=== PATIENT | female | born 1945 | race Caucasian/White ===

== ENCOUNTER 2019-06-09 08:34 | Inpatient (IN) | payer MEDICARE ==
[2019-06-09] MEDS ORDERED: SODIUM CHLORIDE 0.9% 1,000 ML IV ONE (08:44)
--- NOTE | 2019-06-09 08:51 | ED ---
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 Also during the night she apparently was having some trouble. He did not sleep in the same room he states. She did have a recent urinary tract infection about 2 weeks ago she was treated for this. No other recent falls no fevers chills nausea vomiting sweats or other symptoms reported. He states that her mentation is not her normal mentation. No deficits. She was brought in by EMS stroke scale was negative. MD Complaint: fall - Related Data Home Medications Medication Instructions Recorded Confirmed Hydrochlorothiazide 50 mg PO DAILY 06/09/19 06/09/19 Omeprazole [PriLOSEC] 40 mg PO DAILY 06/09/19 06/09/19 Potassium Chloride [Klor-Con 10] 10 meq PO DAILY 06/09/19 06/09/19 Propranolol HCl [Inderal LA] 120 mg PO DAILY 06/09/19 06/09/19 Allergies Allergy/AdvReac Type Severity Reaction Status Date / Time No Known Allergies Allergy Verified 06/09/19 09:11 Review of Systems ROS Statement: Those systems with pertinent positive or pertinent negative responses have been documented in the HPI. ROS Other: All systems not noted in ROS Statement are negative. General Exam - General Exam Comments Initial Comments: This is a well-developed obese female who is awake and alert but confused she did have a cervical collar on for precautionary measures. Limitations: altered mental status General appearance: alert, in no apparent distress Head exam: Present: atraumatic, normocephalic, normal inspection Eye exam: Present: normal appearance, PERRL, EOMI. Absent: scleral icterus, conjunctival injection, periorbital swelling ENT exam: Present: normal exam, mucous membranes moist Neck exam: Present: normal inspection, full ROM, other (I did clear the patient's C-spine clinically.). Absent: tenderness, meningismus, lymphadenopathy Respiratory exam: Present: normal lung sounds bilaterally. Absent: respiratory distress, wheezes, rales, rhonchi, stridor Cardiovascular Exam: Present: regular rate, normal rhythm, normal heart sounds. Absent: systolic murmur, diastolic murmur, rubs, gallop, clicks GI/Abdominal exam: Present: soft, normal bowel sounds. Absent: distended, tenderness, guarding, rebound, rigid Extremities exam: Present: normal inspection, full ROM, normal capillary refill. Absent: tenderness, pedal edema, joint swelling, calf tenderness Back exam: Present: normal inspection Neurological exam: Present: alert, altered, CN II-XII intact. Absent: motor sensory deficit Psychiatric exam: Present: normal affect, normal mood Skin exam: Present: warm, dry, intact, normal color. Absent: rash Course Vital Signs 06/09/19 06/09/19 08:37 10:36 Temperature 102.5 F H Pulse Rate 83 81 Respiratory 18 18 Rate Blood Pressure 132/78 128/75 O2 Sat by Pulse 96 95 Oximetry - Reevaluation(s) Reevaluation #1: 06/09/19 10:55 Ventilation the patient after return from CAT scan reveals no change. Reevaluation #2: 06/09/19 10:55 I did review the imaging and reports no acute findings. Medical Decision Making - Medical Decision Making I did discuss findings with the patient and her as well as with Dr. Roque. Patient will be admitted for IV fluids and further evaluation. The altered mental status likely secondary to the infectious process. The patient is maintaining her blood pressure and heart rate - Lab Data Result diagrams: 06/09/19 08:38 06/09/19 08:38 Lab Results 06/09/19 06/09/19 06/09/19 Range/Units 08:38 08:38 08:38 WBC 14.1 H (3.8-10.6) k/uL RBC 4.29 (3.80-5.40) m/uL Hgb 11.9 (11.4-16.0) gm/dL Hct 36.4 (34.0-46.0) % MCV 84.8 (80.0-100.0) fL MCH 27.8 (25.0-35.0) pg MCHC 32.8 (31.0-37.0) g/dL RDW 15.7 H (11.5-15.5) % Plt Count 412 (150-450) k/uL Neutrophils % 79 % Lymphocytes % 11 % Monocytes % 7 % Eosinophils % 1 % Basophils % 0 % Neutrophils # 11.1 H (1.3-7.7) k/uL Lymphocytes # 1.5 (1.0-4.8) k/uL Monocytes # 1.0 (0-1.0) k/uL Eosinophils # 0.1 (0-0.7) k/uL Basophils # 0.0 (0-0.2) k/uL PT 9.8 (9.0-12.0) sec INR 0.9 (<1.2) APTT 25.0 (22.0-30.0) sec Sodium 136 L (137-145) mmol/L Potassium 4.0 (3.5-5.1) mmol/L Chloride 99 (98-107) mmol/L Carbon Dioxide 27 (22-30) mmol/L Anion Gap 10 mmol/L BUN 26 H (7-17) mg/dL Creatinine 1.15 H (0.52-1.04) mg/dL Est GFR (CKD-EPI)AfAm 55 (>60 ml/min/1.73 sqM) Est GFR (CKD-EPI)NonAf 47 (>60 ml/min/1.73 sqM) Glucose 130 H (74-99) mg/dL Calcium 8.8 (8.4-10.2) mg/dL Total Bilirubin 0.7 (0.2-1.3) mg/dL AST 27 (14-36) U/L ALT 19 (9-52) U/L Alkaline Phosphatase 105 (38-126) U/L Ammonia (<30) umol/L Creatine Kinase 24 L (30-135) U/L Troponin I (0.000-0.034) ng/mL Total Protein 6.7 (6.3-8.2) g/dL Albumin 3.7 (3.5-5.0) g/dL Urine Color Urine Appearance (Clear) Urine pH (5.0-8.0) Ur Specific [place] (1.001-1.035) Urine Protein (Negative) Urine Glucose (UA) (Negative) Urine Ketones (Negative) Urine Blood (Negative) Urine Nitrite (Negative) Urine Bilirubin (Negative) Urine Urobilinogen (<2.0) mg/dL Ur Leukocyte Esterase (Negative) Urine RBC (0-5) /hpf Urine WBC (0-5) /hpf Urine WBC Clumps (None) /hpf Urine Bacteria (None) /hpf Urine Opiates Screen (NotDetected) Ur Oxycodone Screen (NotDetected) Urine Methadone Screen (NotDetected) Ur Propoxyphene Screen (NotDetected) Ur Barbiturates Screen (NotDetected) U Tricyclic Antidepress (NotDetected) Ur Phencyclidine Scrn (NotDetected) Ur Amphetamines Screen (NotDetected) U Methamphetamines Scrn (NotDetected) U Benzodiazepines Scrn (NotDetected) Urine Cocaine Screen (NotDetected) U Marijuana (THC) Screen (NotDetected) 06/09/19 06/09/19 06/09/19 Range/Units 08:38 08:38 09:02 WBC (3.8-10.6) k/uL RBC (3.80-5.40) m/uL Hgb (11.4-16.0) gm/dL Hct (34.0-46.0) % MCV (80.0-100.0) fL MCH (25.0-35.0) pg MCHC (31.0-37.0) g/dL RDW (11.5-15.5) % Plt Count (150-450) k/uL Neutrophils % % Lymphocytes % % Monocytes % % Eosinophils % % Basophils % % Neutrophils # (1.3-7.7) k/uL Lymphocytes # (1.0-4.8) k/uL Monocytes # (0-1.0) k/uL Eosinophils # (0-0.7) k/uL Basophils # (0-0.2) k/uL PT (9.0-12.0) sec INR (<1.2) APTT (22.0-30.0) sec Sodium (137-145) mmol/L Potassium (3.5-5.1) mmol/L Chloride (98-107) mmol/L Carbon Dioxide (22-30) mmol/L Anion Gap mmol/L BUN (7-17) mg/dL Creatinine (0.52-1.04) mg/dL Est GFR (CKD-EPI)AfAm (>60 ml/min/1.73 sqM) Est GFR (CKD-EPI)NonAf (>60 ml/min/1.73 sqM) Glucose (74-99) mg/dL Calcium (8.4-10.2) mg/dL Total Bilirubin (0.2-1.3) mg/dL AST (14-36) U/L ALT (9-52) U/L Alkaline Phosphatase (38-126) U/L Ammonia <9 (<30) umol/L Creatine Kinase (30-135) U/L Troponin I <0.012 (0.000-0.034) ng/mL Total Protein (6.3-8.2) g/dL Albumin (3.5-5.0) g/dL Urine Color Yellow Urine Appearance Turbid H (Clear) Urine pH 6.0 (5.0-8.0) Ur Specific [place] 1.016 (1.001-1.035) Urine Protein 1+ H (Negative) Urine Glucose (UA) Negative (Negative) Urine Ketones Negative (Negative) Urine Blood Moderate H (Negative) Urine Nitrite Positive H (Negative) Urine Bilirubin Negative (Negative) Urine Urobilinogen <2.0 (<2.0) mg/dL Ur Leukocyte Esterase Large H (Negative) Urine RBC 22 H (0-5) /hpf Urine WBC >182 H (0-5) /hpf Urine WBC Clumps Many H (None) /hpf Urine Bacteria Many H (None) /hpf Urine Opiates Screen Not Detected (NotDetected) Ur Oxycodone Screen Not Detected (NotDetected) Urine Methadone Screen Not Detected (NotDetected) Ur Propoxyphene Screen Not Detected (NotDetected) Ur Barbiturates Screen Not Detected (NotDetected) U Tricyclic Antidepress Not Detected (NotDetected) Ur Phencyclidine Scrn Not Detected (NotDetected) Ur Amphetamines Screen Not Detected (NotDetected) U Methamphetamines Scrn Not Detected (NotDetected) U Benzodiazepines Scrn Detected H (NotDetected) Urine Cocaine Screen Not Detected (NotDetected) U Marijuana (THC) Screen Not Detected (NotDetected) - EKG Data -: EKG Interpreted by Dc EKG shows normal: sinus rhythm (Neuro sinus rhythm 80 SD interval 156 QRS duration 74 QT since QTC 360/424 nonspecific inferior configuration) Disposition Clinical Impression: Urinary tract infection, Delirium due to general medical condition, Febrile illness, acute, Dehydration, Renal insufficiency syndrome Disposition: ADMITTED IP TO THIS HOSP Condition: Fair Referrals: Josue Love MD [Primary Care Provider] - 1-2 days
[2019-06-09 09:07] LABS: Basophils % (A) 0 %; Eosinophils # (A) 0.1 k/uL (0-0.7); Eosinophils % (A) 1 %; HCT 36.4 % (34.0-46.0); HGB 11.9 gm/dL (11.4-16.0); Lymphocytes # (A) 1.5 k/uL (1.0-4.8); Lymphocytes % (A) 11 %; MCH 27.8 pg (25.0-35.0); MCHC 32.8 g/dL (31.0-37.0); MCV 84.8 fL (80.0-100.0); Mean Platelet Volume 6.8; Monocytes % (A) 7 %; Neutrophils # (A) 11.1 k/uL (1.3-7.7); Neutrophils % (A) 79 %; Platelet Count 412 k/uL (150-450); RBC 4.29 m/uL (3.80-5.40); RDW 15.7 % (11.5-15.5); WBC 14.1 k/uL (3.8-10.6)
[2019-06-09 09:19] LABS: INR 0.9 (<1.2); Prothrombin Time 9.8 sec (9.0-12.0)
[2019-06-09 09:21] LABS: Albumin 3.7 g/dL (3.5-5.0); Calcium 8.8 mg/dL (8.4-10.2); Total Bilirubin 0.7 mg/dL (0.2-1.3); Total Protein 6.7 g/dL (6.3-8.2)
[2019-06-09 09:46] LABS: Appearance,Urine Turbid (Clear); Bacteria,Urine Many /hpf; Bilirubin,Urine Negative (Negative); Blood,Urine Moderate (Negative); Color,Urine Yellow; Glucose,Urine (UA) Negative (Negative); Ketones,Urine Negative (Negative); Leukocyte Esterase,Urine Large (Negative); Nitrite,Urine Positive (Negative); Protein,Urine 1+ (Negative); RBC,Urine 22 /hpf (0-5); Specific Gravity,Urine 1.016 (1.001-1.035); Urobilinogen,Urine <2.0 mg/dL (<2.0)
--- NOTE | 2019-06-09 09:49 | CT ---
EXAMINATION TYPE: CT brain deric arora DATE OF EXAM: 06/09/2019 COMPARISON: NONE HISTORY: Fall injury with headache and neck pain CT DLP: 1457.2 mGycm. Automated Exposure Control for Dose Reduction was Utilized. TECHNIQUE: CT scan of the head and cervical spine are performed without contrast. FINDINGS: There is no acute intracranial hemorrhage or midline shift identified. Ventricle and sulc al prominence is seen. Low-attenuation in the deep and periventricular white matter is present. The globes are intact and the visualized sinuses are clear. The calvarium is intact. Cervical spine is visualized in its entirety from C1 through upper thoracic levels and demonstrates s traightened alignment without evidence of acute fracture or dislocation. Prevertebral soft tissue ap pears within normal limits. The C1-C2 articulation is within normal limits on the coronal images. V ertebral body heights are maintained. Moderate disc space narrowing C5-C6 and C6-C7 levels is seen. S ga canal is grossly preserved. Review of axial images shows multilevel uncovertebral facet degener ative changes bilaterally. Thyroid gland is within normal limits. Lung apices show emphysematous moore ge and parenchymal scarring. IMPRESSION: 1. There is no acute fracture or dislocation evident in the cervical spine. 2. No acute intracranial hemorrhage or midline shift is seen.
--- NOTE | 2019-06-09 09:50 | XR ---
EXAMINATION TYPE: XR chest 2V DATE OF EXAM: 06/09/2019 COMPARISON: NONE HISTORY: Fall injury this morning with altered mental status and weakness TECHNIQUE: Frontal and lateral views of the chest are obtained. FINDINGS: There is elevated and eventrated anterior aspect right hemidiaphragm. There is no focal air space opacity, pleural effusion, or pneumothorax seen. The cardiac silhouette size is enlarged. Ove rlying EKG leads are seen. Atherosclerotic change aortic knob is present The osseous structures are demineralized. Cholecystectomy clips are noted. IMPRESSION: Cardiomegaly without acute pulmonary process.
[2019-06-09 09:53] LABS: Amphetamine Screen,Urine Not Detected (NotDetected); Barbiturate Screen,Urine Not Detected (NotDetected); Benzodiazepines Screen,Urine Detected (NotDetected); Cocaine Screen,Urine Not Detected (NotDetected); Methadone Screen, Urine Not Detected (NotDetected); Opiate Screen,Urine Not Detected (NotDetected); Oxycodone Screen, Urine Not Detected (NotDetected); Phencyclidine Screen,Urine Not Detected (NotDetected); Tricyclic Antidepressant,Urine Not Detected (NotDetected); Urn Cannabinoid Scrn Not Detected (NotDetected)
[2019-06-09] MEDS ORDERED: cefTRIAXone IN SWFI 1,000 MG/10 ML SYRINGE IVP STA ×2 (10:14→11:05)
[2019-06-09] MEDS ORDERED: ACETAMINOPHEN TAB 325 MG TAB PO STA (10:15)
[2019-06-09] MEDS ORDERED: ONDANSETRON 4 MG/2 ML VIAL IVP PRN (10:59)
[2019-06-09] MEDS ORDERED: NALOXONE 0.4 MG/ML 1 ML VIAL IV PRN (10:59)
--- NOTE | 2019-06-09 11:21 | ED ---
Medical Decision Making - Lab Data Result diagrams: 06/09/19 08:38 06/09/19 08:38 Lab Results 06/09/19 06/09/19 06/09/19 Range/Units 08:38 08:38 08:38 WBC 14.1 H (3.8-10.6) k/uL RBC 4.29 (3.80-5.40) m/uL Hgb 11.9 (11.4-16.0) gm/dL Hct 36.4 (34.0-46.0) % MCV 84.8 (80.0-100.0) fL MCH 27.8 (25.0-35.0) pg MCHC 32.8 (31.0-37.0) g/dL RDW 15.7 H (11.5-15.5) % Plt Count 412 (150-450) k/uL Neutrophils % 79 % Lymphocytes % 11 % Monocytes % 7 % Eosinophils % 1 % Basophils % 0 % Neutrophils # 11.1 H (1.3-7.7) k/uL Lymphocytes # 1.5 (1.0-4.8) k/uL Monocytes # 1.0 (0-1.0) k/uL Eosinophils # 0.1 (0-0.7) k/uL Basophils # 0.0 (0-0.2) k/uL PT 9.8 (9.0-12.0) sec INR 0.9 (<1.2) APTT 25.0 (22.0-30.0) sec Sodium 136 L (137-145) mmol/L Potassium 4.0 (3.5-5.1) mmol/L Chloride 99 (98-107) mmol/L Carbon Dioxide 27 (22-30) mmol/L Anion Gap 10 mmol/L BUN 26 H (7-17) mg/dL Creatinine 1.15 H (0.52-1.04) mg/dL Est GFR (CKD-EPI)AfAm 55 (>60 ml/min/1.73 sqM) Est GFR (CKD-EPI)NonAf 47 (>60 ml/min/1.73 sqM) Glucose 130 H (74-99) mg/dL Calcium 8.8 (8.4-10.2) mg/dL Total Bilirubin 0.7 (0.2-1.3) mg/dL AST 27 (14-36) U/L ALT 19 (9-52) U/L Alkaline Phosphatase 105 (38-126) U/L Ammonia (<30) umol/L Creatine Kinase 24 L (30-135) U/L Troponin I (0.000-0.034) ng/mL Total Protein 6.7 (6.3-8.2) g/dL Albumin 3.7 (3.5-5.0) g/dL Urine Color Urine Appearance (Clear) Urine pH (5.0-8.0) Ur Specific [place] (1.001-1.035) Urine Protein (Negative) Urine Glucose (UA) (Negative) Urine Ketones (Negative) Urine Blood (Negative) Urine Nitrite (Negative) Urine Bilirubin (Negative) Urine Urobilinogen (<2.0) mg/dL Ur Leukocyte Esterase (Negative) Urine RBC (0-5) /hpf Urine WBC (0-5) /hpf Urine WBC Clumps (None) /hpf Urine Bacteria (None) /hpf Urine Opiates Screen (NotDetected) Ur Oxycodone Screen (NotDetected) Urine Methadone Screen (NotDetected) Ur Propoxyphene Screen (NotDetected) Ur Barbiturates Screen (NotDetected) U Tricyclic Antidepress (NotDetected) Ur Phencyclidine Scrn (NotDetected) Ur Amphetamines Screen (NotDetected) U Methamphetamines Scrn (NotDetected) U Benzodiazepines Scrn (NotDetected) Urine Cocaine Screen (NotDetected) U Marijuana (THC) Screen (NotDetected) 06/09/19 06/09/19 06/09/19 Range/Units 08:38 08:38 09:02 WBC (3.8-10.6) k/uL RBC (3.80-5.40) m/uL Hgb (11.4-16.0) gm/dL Hct (34.0-46.0) % MCV (80.0-100.0) fL MCH (25.0-35.0) pg MCHC (31.0-37.0) g/dL RDW (11.5-15.5) % Plt Count (150-450) k/uL Neutrophils % % Lymphocytes % % Monocytes % % Eosinophils % % Basophils % % Neutrophils # (1.3-7.7) k/uL Lymphocytes # (1.0-4.8) k/uL Monocytes # (0-1.0) k/uL Eosinophils # (0-0.7) k/uL Basophils # (0-0.2) k/uL PT (9.0-12.0) sec INR (<1.2) APTT (22.0-30.0) sec Sodium (137-145) mmol/L Potassium (3.5-5.1) mmol/L Chloride (98-107) mmol/L Carbon Dioxide (22-30) mmol/L Anion Gap mmol/L BUN (7-17) mg/dL Creatinine (0.52-1.04) mg/dL Est GFR (CKD-EPI)AfAm (>60 ml/min/1.73 sqM) Est GFR (CKD-EPI)NonAf (>60 ml/min/1.73 sqM) Glucose (74-99) mg/dL Calcium (8.4-10.2) mg/dL Total Bilirubin (0.2-1.3) mg/dL AST (14-36) U/L ALT (9-52) U/L Alkaline Phosphatase (38-126) U/L Ammonia <9 (<30) umol/L Creatine Kinase (30-135) U/L Troponin I <0.012 (0.000-0.034) ng/mL Total Protein (6.3-8.2) g/dL Albumin (3.5-5.0) g/dL Urine Color Yellow Urine Appearance Turbid H (Clear) Urine pH 6.0 (5.0-8.0) Ur Specific [place] 1.016 (1.001-1.035) Urine Protein 1+ H (Negative) Urine Glucose (UA) Negative (Negative) Urine Ketones Negative (Negative) Urine Blood Moderate H (Negative) Urine Nitrite Positive H (Negative) Urine Bilirubin Negative (Negative) Urine Urobilinogen <2.0 (<2.0) mg/dL Ur Leukocyte Esterase Large H (Negative) Urine RBC 22 H (0-5) /hpf Urine WBC >182 H (0-5) /hpf Urine WBC Clumps Many H (None) /hpf Urine Bacteria Many H (None) /hpf Urine Opiates Screen Not Detected (NotDetected) Ur Oxycodone Screen Not Detected (NotDetected) Urine Methadone Screen Not Detected (NotDetected) Ur Propoxyphene Screen Not Detected (NotDetected) Ur Barbiturates Screen Not Detected (NotDetected) U Tricyclic Antidepress Not Detected (NotDetected) Ur Phencyclidine Scrn Not Detected (NotDetected) Ur Amphetamines Screen Not Detected (NotDetected) U Methamphetamines Scrn Not Detected (NotDetected) U Benzodiazepines Scrn Detected H (NotDetected) Urine Cocaine Screen Not Detected (NotDetected) U Marijuana (THC) Screen Not Detected (NotDetected) Disposition Clinical Impression: Urinary tract infection, Delirium due to general medical condition, Febrile illness, acute, Dehydration, Renal insufficiency syndrome, Pyelonephritis Disposition: ADMITTED IP TO THIS [facility] Condition: Fair Referrals: Josue Love MD [Primary Care Provider] - 1-2 days
[2019-06-09 13:07] VITALS: BMI 30.4
--- NOTE | 2019-06-09 14:06 | P.HPIM ---
History of Present Illness 74-year-old pleasant female came in after a fall patient was found the in between her bed and wall which, patient has been having fevers and complaining of flank pain and back pain on the entire right side along with dysuria patient has high-grade fevers found to have significantly abnormal urine. Patient was treated for urinary tract infection couple weeks ago as an outpatient. Patient had a CAT scan of the head and neck because of her fall which did not show any significant abnormality at the fracture. Patient was started on Rocephin we get the medical records from PCPs office looking for the urine culture and sensitivity results. Patient has mild acute renal failure with creatinine of 1.15 I do not have her baseline at this time. Review of Systems REVIEW OF SYSTEMS: CONSTITUTIONAL: No fever, no malaise, no fatigue. HEENT: No recent visual problems or hearing problems. Denied any sore throat. CARDIOVASCULAR: No chest pain, orthopnea, PND, no palpitations, no syncope. PULMONARY: No shortness of breath, no cough, no hemoptysis. GASTROINTESTINAL: No diarrhea, no nausea, no vomiting, no abdominal pain. NEUROLOGICAL: No headaches, no weakness, no numbness. HEMATOLOGICAL: Denies any bleeding or petechiae. GENITOURINARY: As mentioned in HPI MUSCULOSKELETAL/RHEUMATOLOGICAL: Denies any joint pain, swelling, or any muscle pain. ENDOCRINE: Denies any polyuria or polydipsia. The rest of the 14-point review of systems is negative. 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 History of Any Multi-Drug Resistant Organisms: None Reported Past Surgical History: Appendectomy, Hysterectomy, Tonsillectomy Additional Past Surgical History / Comment(s): brain surgery, colonoscopy- normal. Past Anesthesia/Blood Transfusion Reactions: No Reported Reaction Additional Past Anesthesia/Blood Transfusion Reaction / Comment(s): Pt received blood with brain surgery. Smoking Status: Former smoker - Past Family History Father Family Medical History: Myocardial Infarction ([place]) Additional Family Medical History / Comment(s): Father of a massive [place] at the age of 86yrs. Mother Family Medical History: Dementia Additional Family Medical History / Comment(s): Mother of alzheimer's at the age of 78yrs. Medications and Allergies Home Medications Medication Instructions Recorded Confirmed Type ALPRAZolam [Xanax] 0.5 mg PO TID PRN 06/09/19 06/09/19 History Hydrochlorothiazide 50 mg PO DAILY 06/09/19 06/09/19 History Omeprazole [PriLOSEC] 40 mg PO DAILY 06/09/19 06/09/19 History Potassium Chloride [Klor-Con 10] 10 meq PO DAILY 06/09/19 06/09/19 History Propranolol HCl [Inderal LA] 120 mg PO DAILY 06/09/19 06/09/19 History Simvastatin 10 mg PO HS 06/09/19 06/09/19 History Allergies Allergy/AdvReac Type Severity Reaction Status Date / Time No Known Allergies Allergy Verified 06/09/19 09:11 Physical Exam Vitals: Vital Signs Temp Pulse Resp BP Pulse Ox 06/09/19 11:53 99.7 F H 77 18 103/64 95 06/09/19 10:36 81 18 128/75 95 06/09/19 08:37 102.5 F H 83 18 132/78 96 Intake and Output 06/08/19 06/09/19 06/09/19 22:59 06:59 14:59 Output Total 20 Balance -20 Output: Urine 20 Straight 20 Other: Weight 85.729 kg PHYSICAL EXAMINATION: GENERAL: The patient is alert and oriented x3, not in any acute distress. Well developed, well nourished. HEENT: Pupils are round and equally reacting to light. EOMI. No scleral icterus. No conjunctival pallor. Normocephalic, atraumatic. No pharyngeal erythema. No thyromegaly. CARDIOVASCULAR: S1 and S2 present. No murmurs, rubs, or gallops. PULMONARY: Chest is clear to auscultation, no wheezing or crackles. ABDOMEN: She does have a significant right costo vertebral angle tenderness uzma ng with the paraspinal tenderness. MUSCULOSKELETAL: No joint swelling or deformity. EXTREMITIES: No cyanosis, clubbing, or pedal edema. NEUROLOGICAL: Gross neurological examination did not reveal any focal deficits. SKIN: No rashes. Results CBC & Chem 7: 06/09/19 08:38 06/09/19 08:38 Labs: Abnormal Lab Results - Last 24 Hours (Table) 07/12/19 07/12/19 07/12/19 Range/Units 08:38 08:38 09:02 WBC 14.1 H (3.8-10.6) k/uL RDW 15.7 H (11.5-15.5) % Neutrophils # 11.1 H (1.3-7.7) k/uL Sodium 136 L (137-145) mmol/L BUN 26 H (7-17) mg/dL Creatinine 1.15 H (0.52-1.04) mg/dL Glucose 130 H (74-99) mg/dL Creatine Kinase 24 L (30-135) U/L Urine Appearance Turbid H (Clear) Urine Protein 1+ H (Negative) Urine Blood Moderate H (Negative) Urine Nitrite Positive H (Negative) Ur Leukocyte Esterase Large H (Negative) Urine RBC 22 H (0-5) /hpf Urine WBC >182 H (0-5) /hpf Urine WBC Clumps Many H (None) /hpf Urine Bacteria Many H (None) /hpf U Benzodiazepines Scrn Detected H (NotDetected) Thrombosis Risk Factor Assmnt - Choose All That Apply Any of the Below Risk Factors Present?: Yes Each Factor Represents 1 point: Obesity (BMI >25) Other Risk Factors: Yes Each Risk Factor Represents 2 Points: Age 61-74 years Other congenital or acquired thrombophilia - If yes, enter type in comment: No Thrombosis Risk Factor Assessment Total Risk Factor Score: 3 Thrombosis Risk Factor Assessment Level: Moderate Risk Assessment and Plan Plan: -Sepsis secondary to urinary tract infection, patient appears to have pyelonephritis: Patient will be can you done IV fluids, Rocephin awaiting urine cultures will obtain medical records from PCPs office, infectious disease was consulted. -Gastroesophageal reflux disease -Hyperlipidemia -Depression -Hypertension for above-mentioned chronic medical problems patient will be resumed on appropriate home medications GI prophylaxis with Pepcid secondary to sepsis, due to prophylaxis with subcutan eous heparin
[2019-06-09] MEDS: SODIUM CHLORIDE 0.9% 1,000 ML IV SCH ×2 (17:55→23:01)
[2019-06-09] MEDS: HEPARIN SODIUM,PORCINE 5,000 UNIT/ML 1 ML VIAL SQ SCH ×2 (17:55→21:10)
--- NOTE | 2019-06-09 20:34 | P.CONS ---
History of Present Illness - Reason for Consult Consult date: 06/09/19 - Chief Complaint Fever - History of Present Illness 74-year-old woman presents to Hospital feeling poorly in home for the last few days. She consequently is brought to Hospital by family with alteration of her mental status fever and weakness. She apparently has been followed in the outpatient setting for a urinary tract infection. They thought maybe urine culture was on the primary care physician office which the nursing staff have attempted to obtain. Initially that she took [id number] Azo products for almost 2 weeks. she now presents with evidence of sepsis and the consult was requested. She does not believe that she has had outpatient antibiotic therapy. Review of Systems Patient feels weak and tired HEENT:Denies headache or acute visual change. Denies sinus or mouth discomforts. Denies neck stiffness or pain. Denies significant oral cavity pain. Denies difficulty on swallowing. Lungs: Denies significant shortness of breath, cough, sputum production, or hemoptysis. Cardiovascular: Denies significant shortness of breath, chest pain, chest wall pain, orthopnea, dyspnea on exertion, syncope Gastrointestinal:Denies nausea, vomiting, diarrhea, constipation, hematemesis, melena, hematochezia. No no significant change of bowel habit noticed. Musculoskeletal: denies significant myalgias or arthralgias. No new joint swelling. Denies new back pain. Skin: Denies new rash or lesions. No new ulcers or wounds are related.. Neuro: Denies headache or visual change. Denies any new onset weakness or difficulty with ambulation. Denies falls or seizures. Psychiatric:Denies anxiety or depression. Endocrine: Complains of fatigue weight is been stable Patient does complain of severe dysuria, urinary frequency but does not have significant flank pain at this time. 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 History of Any Multi-Drug Resistant Organisms: None Reported Past Surgical History: Appendectomy, Hysterectomy, Tonsillectomy Additional Past Surgical History / Comment(s): brain surgery, colonoscopy- normal. Past Anesthesia/Blood Transfusion Reactions: No Reported Reaction Additional Past Anesthesia/Blood Transfusion Reaction / Comm: Pt received blood with brain surgery. Additional Psychological History / Comment(s): Patient with that she is . Cared for by the and family home. No travel. No pets Smoking Status: Former smoker - Past Family History Father Family Medical History: Myocardial Infarction (CA) Additional Family Medical History / Comment(s): Father of a massive CA at the age of 86yrs. Mother Family Medical History: Dementia Additional Family Medical History / Comment(s): Mother of alzheimer's at the age of 78yrs. Medications and Allergies Home Medications and Allergies Comment(s): Current Medications Acetaminophen (Tylenol Tab) 650 mg PO Q6HR PRN PRN Reason: Mild Pain or Fever > 100.5 Famotidine (Pepcid) 20 mg PO BID [facility] Heparin Sodium (Porcine) (Heparin) 5,000 unit SQ Q8HR [facility] Last Admin: 06/09/19 17:55 Dose: 5,000 unit Documented by: Sodium Chloride (Saline 0.9%) 1,000 mls @ 100 mls/hr IV .Q10H [facility] Last Admin: 06/09/19 17:55 Dose: 100 mls/hr Documented by: Ceftriaxone Sodium 2 gm/ (Sodium Chloride) 50 mls @ 100 mls/hr IVPB Q24HR [facility] Naloxone HCl (Narcan) 0.2 mg IV Q2M PRN PRN Reason: Opioid Reversal Ondansetron HCl (Zofran) 4 mg IVP Q8HR PRN PRN Reason: Nausea And Vomiting Pantoprazole Sodium (Protonix) 40 mg PO AC-BRKFST [facility] Potassium Chloride (K-Dur 10) 10 meq PO DAILY [facility] Propranolol HCl (Inderal La) 120 mg PO DAILY [facility] Home Medications Medication Instructions Recorded Confirmed Type ALPRAZolam [Xanax] 0.5 mg PO TID PRN 06/09/19 06/09/19 History Hydrochlorothiazide 50 mg PO DAILY 06/09/19 06/09/19 History Omeprazole [PriLOSEC] 40 mg PO DAILY 06/09/19 06/09/19 History Potassium Chloride [Klor-Con 10] 10 meq PO DAILY 06/09/19 06/09/19 History Propranolol HCl [Inderal LA] 120 mg PO DAILY 06/09/19 06/09/19 History Simvastatin 10 mg PO HS 06/09/19 06/09/19 History Allergies Allergy/AdvReac Type Severity Reaction Status Date / Time No Known Allergies Allergy Verified 06/09/19 09:11 Physical Exam Vitals: Vital Signs Temp Pulse Resp BP Pulse Ox 06/09/19 15:00 98.2 F 06/09/19 11:53 99.7 F H 77 18 103/64 95 06/09/19 10:36 81 18 128/75 95 06/09/19 08:37 102.5 F H 83 18 132/78 96 Intake and Output 06/09/19 06/09/19 06/09/19 06:59 14:59 22:59 Intake Total 200 Output Total 20 Balance 180 Intake: Intake, IV Titration 200 Amount Sodium Chloride 0.9% 1, 200 000 ml @ 100 mls/hr IV . Q10H [facility] Rx#:[id number] Output: Urine 20 Straight 20 Other: Voiding Method Diaper Weight 85.729 kg HEENT: Anicteric conjunctiva are pink and moist nasal mucosa grossly intact without significant lesions, there is no thrush. Neck: The neck is supple without significant lymphadenopathy or thyromegaly. Lungs: Good bilateral air entry without significant crackles or wheezing. There is no significant bronchial sounds. There is no egophony or dullness. Heart: Regular audible S1 and S2 soft S4 no murmur click or a PMI is nondisplaced Abdomen: Obese, Positive bowel sounds soft and nontender without palpable masses or organomegaly. There was no guarding or rebound. Extremities: The upper extremities have excellent pulses they are symmetric, no significant petechiae or telangiectasia. No splinter hemorrhages were noted. The lower extremities have bilateral lower extremity edema is 2+ and symmetric without open ulcerations being seen Neuro: The patient is arousable, she becomes conversational when she's been awake for a few minutes but easily falls back to sleep. She has not a good historian at this time. Results CBC & Chem 7: 06/09/19 08:38 06/09/19 08:38 Labs: Abnormal Lab Results - Last 24 Hours (Table) 06/09/19 06/09/19 06/09/19 Range/Units 08:38 08:38 09:02 WBC 14.1 H (3.8-10.6) k/uL RDW 15.7 H (11.5-15.5) % Neutrophils # 11.1 H (1.3-7.7) k/uL Sodium 136 L (137-145) mmol/L BUN 26 H (7-17) mg/dL Creatinine 1.15 H (0.52-1.04) mg/dL Glucose 130 H (74-99) mg/dL Creatine Kinase 24 L (30-135) U/L Urine Appearance Turbid H (Clear) Urine Protein 1+ H (Negative) Urine Blood Moderate H (Negative) Urine Nitrite Positive H (Negative) Ur Leukocyte Esterase Large H (Negative) Urine RBC 22 H (0-5) /hpf Urine WBC >182 H (0-5) /hpf Urine WBC Clumps Many H (None) /hpf Urine Bacteria Many H (None) /hpf U Benzodiazepines Scrn Detected H (NotDetected) Microbiology - Last 24 Hours (Table) 06/09/19 09:02 Urine Culture - Preliminary Urine,Catheterized Laboratory Results WBC 14.1 k/uL (3.8-10.6) H 06/09/19 08:38 RBC 4.29 m/uL (3.80-5.40) 06/09/19 08:38 Hgb 11.9 gm/dL (11.4-16.0) 06/09/19 08:38 Hct 36.4 % (34.0-46.0) 06/09/19 08:38 MCV 84.8 fL (80.0-100.0) 06/09/19 08:38 MCH 27.8 pg (25.0-35.0) 06/09/19 08:38 MCHC 32.8 g/dL (31.0-37.0) 06/09/19 08:38 RDW 15.7 % (11.5-15.5) H 06/09/19 08:38 Plt Count 412 k/uL (150-450) 06/09/19 08:38 Neutrophils % 79 % 06/09/19 08:38 Lymphocytes % 11 % 06/09/19 08:38 Monocytes % 7 % 06/09/19 08:38 Eosinophils % 1 % 06/09/19 08:38 Basophils % 0 % 06/09/19 08:38 Neutrophils # 11.1 k/uL (1.3-7.7) H 06/09/19 08:38 Lymphocytes # 1.5 k/uL (1.0-4.8) 06/09/19 08:38 Monocytes # 1.0 k/uL (0-1.0) 06/09/19 08:38 Eosinophils # 0.1 k/uL (0-0.7) 06/09/19 08:38 Basophils # 0.0 k/uL (0-0.2) 06/09/19 08:38 PT 9.8 sec (9.0-12.0) 06/09/19 08:38 INR 0.9 (<1.2) 06/09/19 08:38 APTT 25.0 sec (22.0-30.0) 06/09/19 08:38 Sodium 136 mmol/L (137-145) L 06/09/19 08:38 Potassium 4.0 mmol/L (3.5-5.1) 06/09/19 08:38 Chloride 99 mmol/L (98-107) 06/09/19 08:38 Carbon Dioxide 27 mmol/L (22-30) 06/09/19 08:38 Anion Gap 10 mmol/L 06/09/19 08:38 BUN 26 mg/dL (7-17) H 06/09/19 08:38 Creatinine 1.15 mg/dL (0.52-1.04) H 06/09/19 08:38 Est GFR (CKD-EPI)AfAm 55 (>60 ml/min/1.73 sqM) 06/09/19 08:38 Est GFR (CKD-EPI)NonAf 47 (>60 ml/min/1.73 sqM) 06/09/19 08:38 Glucose 130 mg/dL (74-99) H 06/09/19 08:38 Calcium 8.8 mg/dL (8.4-10.2) 06/09/19 08:38 Total Bilirubin 0.7 mg/dL (0.2-1.3) 06/09/19 08:38 AST 27 U/L (14-36) 06/09/19 08:38 ALT 19 U/L (9-52) 06/09/19 08:38 Alkaline Phosphatase 105 U/L (38-126) 06/09/19 08:38 Ammonia <9 umol/L (<30) 06/09/19 08:38 Creatine Kinase 24 U/L (30-135) L 06/09/19 08:38 Troponin I <0.012 ng/mL (0.000-0.034) 06/09/19 08:38 Total Protein 6.7 g/dL (6.3-8.2) 06/09/19 08:38 Albumin 3.7 g/dL (3.5-5.0) 07 08:38 Urine Color Yellow 06/09/19 09:02 Urine Appearance Turbid (Clear) H 06/09/19 09:02 Urine pH 6.0 (5.0-8.0) 06/09/19 09:02 Ur Specific [place] 1.016 (1.001-1.035) 06/09/19 09:02 Urine Protein 1+ (Negative) H 06/09/19 09:02 Urine Glucose (UA) Negative (Negative) 06/09/19 09:02 Urine Ketones Negative (Negative) 06/09/19 09:02 Urine Blood Moderate (Negative) H 06/09/19 09:02 Urine Nitrite Positive (Negative) H 06/09/19 09:02 Urine Bilirubin Negative (Negative) 06/09/19 09:02 Urine Urobilinogen <2.0 mg/dL (<2.0) 06/09/19 09:02 Ur Leukocyte Esterase Large (Negative) H 06/09/19 09:02 Urine RBC 22 /hpf (0-5) H 06/09/19 09:02 Urine WBC >182 /hpf (0-5) H 06/09/19 09:02 Urine WBC Clumps Many /hpf (None) H 06/09/19 09:02 Urine Bacteria Many /hpf (None) H 06/09/19 09:02 Urine Opiates Screen Not Detected (NotDetected) 06/09/19 09:02 Ur Oxycodone Screen Not Detected (NotDetected) 06/09/19 09:02 Urine Methadone Screen Not Detected (NotDetected) 06/09/19 09:02 Ur Propoxyphene Screen Not Detected (NotDetected) 06/09/19 09:02 Ur Barbiturates Screen Not Detected (NotDetected) 06/09/19 09:02 U Tricyclic Antidepress Not Detected (NotDetected) 06/09/19 09:02 Ur Phencyclidine Scrn Not Detected (NotDetected) 06/09/19 09:02 Ur Amphetamines Screen Not Detected (NotDetected) 06/09/19 09:02 U Methamphetamines Scrn Not Detected (NotDetected) 06/09/19 09:02 U Benzodiazepines Scrn Detected (NotDetected) H 06/09/19 09:02 Urine Cocaine Screen Not Detected (NotDetected) 06/09/19 09:02 U Marijuana (THC) Screen Not Detected (NotDetected) 06/09/19 09:02 Microbiology 06/09/19 09:02 Urine,Catheterized Urine Culture - Preliminary Assessment and Plan (1) Febrile illness, acute Current Visit: Yes Status: Acute Code(s): R50.9 - FEVER, UNSPECIFIED SNOMED Code(s): 820785277 (2) Urinary tract infection Narrative/Plan: 74-year-old woman who has a several week history of urinary tract infection who has been treated with outpatient treatments. Apparently she did try to be seen in the outpatient setting but there is no notation that she was placed on antibiotic therapy or had urinalysis or culture. At this time she appears to have sepsis from urinary system and antibiotic therapy has been initiated with Rocephin. Imaging of the system was requested. Hydration has been given in a. There has been improvement of her status. Her leukocytosis secondary to her sepsis and urinary infection. She appears to have septic encephalopathy that already is starting to improve. Current Visit: Yes Status: Acute Code(s): N39.0 - URINARY TRACT INFECTION, SITE NOT SPECIFIED SNOMED Code(s): 93111707 (3) Sepsis Current Visit: Yes Status: Acute Code(s): A41.9 - SEPSIS, UNSPECIFIED ORGANISM SNOMED Code(s): 13163852
[2019-06-09 21:10] VITALS: RESP 16
[2019-06-09] MEDS: FAMOTIDINE 20 MG TAB PO SCH (21:10)
[2019-06-10 07:33] LABS: HCT 34.6 % (34.0-46.0); HGB 11.2 gm/dL (11.4-16.0); MCH 27.6 pg (25.0-35.0); MCHC 32.3 g/dL (31.0-37.0); MCV 85.4 fL (80.0-100.0); Mean Platelet Volume 6.6; Platelet Count 355 k/uL (150-450); RBC 4.04 m/uL (3.80-5.40); RDW 15.9 % (11.5-15.5); WBC 12.1 k/uL (3.8-10.6)
[2019-06-10 08:07] LABS: Calcium 8.4 mg/dL (8.4-10.2); Potassium 3.3 mmol/L (3.5-5.1)
[2019-06-10] MEDS ORDERED: HYDROCHLOROTHIAZIDE 50 MG TAB PO SCH (09:00)
[2019-06-10] MEDS: POTASSIUM CHLORIDE ER 10 MEQ TAB.ER.PRT PO SCH (09:57)
[2019-06-10] MEDS: PANTOPRAZOLE 40 MG TABLET PO SCH (09:57)
[2019-06-10] MEDS: PROPRANOLOL LA 60 MG CAP.SA.24H PO SCH (09:57)
[2019-06-10] MEDS: FAMOTIDINE 20 MG TAB PO SCH ×2 (09:57→22:09)
[2019-06-10] MEDS: HEPARIN SODIUM,PORCINE 5,000 UNIT/ML 1 ML VIAL SQ SCH ×3 (09:57→22:09)
[2019-06-10] MEDS: ACETAMINOPHEN TAB 325 MG TAB PO PRN (11:50)
[2019-06-10] MEDS: SODIUM CHLORIDE 0.9% 1,000 ML IV SCH ×2 (11:51→23:41)
[2019-06-10] MEDS ORDERED: POTASSIUM CHLORIDE ER 20 MEQ TAB.ER PO STA (14:45)
--- NOTE | 2019-06-10 16:05 | P.PN ---
Subjective 74-year-old female was admitted for sepsis secondary to UTI and right-sided pyelonephritis patient is feeling better patient is afebrile patient's serum creatinine is 1.15 stable at that level. Patient will be continued on IV fluids and antibiotics urine cultures are showing gram-negative bacilli. There are no urine cultures available from outpatient. Constitutional: Denied any fatigue denied any fever. Cardio vascular: denied any chest pain, palpitations Gastrointestinal denied any nausea vomiting Pulmonary: Denied any shortness of breath cough Neurologic denied any new focal deficits All inpatient medications were reviewed and appropriate changes in these medications as dictated in the interval history and assessment and plan. Objective - Vital Signs Vital signs: Vital Signs Temp 98.4 F 06/10/19 11:57 Pulse 88 06/10/19 11:57 Resp 16 06/10/19 11:57 BP 124/84 06/10/19 11:57 Pulse Ox 96 06/10/19 11:57 Intake & Output 06/09/19 06/10/19 06/10/19 18:59 06:59 18:59 Intake Total 200 1680 850 Output Total 20 Balance 180 1680 850 Weight 85.729 kg Intake: Intake, IV Titration 200 1200 850 Amount Sodium Chloride 0.9% 1, 200 1200 800 000 ml @ 100 mls/hr IV . Q10H [facility] Rx#:[id number] cefTRIAXone 2 gm In 50 Sodium Chloride 0.9% 50 ml @ 100 mls/hr IVPB Q24HR [facility] Rx#:[id number] Oral 480 Output: Urine 20 Straight 20 Other: Voiding Method Diaper Diaper Bedside Commode Diaper # Voids 2 2 - Exam PHYSICAL EXAMINATION: GENERAL: The patient is alert and oriented x3, not in any acute distress. Well developed, well nourished. HEENT: Pupils are round and equally reacting to light. EOMI. No scleral icterus. No conjunctival pallor. Normocephalic, atraumatic. No pharyngeal erythema. No thyromegaly. CARDIOVASCULAR: S1 and S2 present. No murmurs, rubs, or gallops. PULMONARY: Chest is clear to auscultation, no wheezing or crackles. ABDOMEN: Soft, nontender, nondistended, normoactive bowel sounds. No palpable organomegaly. MUSCULOSKELETAL: No joint swelling or deformity. EXTREMITIES: No cyanosis, clubbing, or pedal edema. NEUROLOGICAL: Gross neurological examination did not reveal any focal deficits. SKIN: No rashes. - Labs CBC & Chem 7: 06/10/19 07:11 06/10/19 07:11 Labs: Abnormal Lab Results - Last 24 Hours (Table) 06/10/19 06/10/19 Range/Units 07:11 07:11 WBC 12.1 H (3.8-10.6) k/uL Hgb 11.2 L (11.4-16.0) gm/dL RDW 15.9 H (11.5-15.5) % Potassium 3.3 L (3.5-5.1) mmol/L BUN 30 H (7-17) mg/dL Creatinine 1.10 H (0.52-1.04) mg/dL Glucose 112 H (74-99) mg/dL Microbiology - Last 24 Hours (Table) 06/09/19 09:02 Urine Culture - Preliminary Urine,Catheterized Gram Neg Bacilli 06/09/19 09:02 Blood Culture - Preliminary Blood No Growth after 24 hours Assessment and Plan Plan: -Sepsis secondary to urinary tract infection, patient appears to have pyelonephritis: Continue with IV fluids IV Rocephin urine culture showing gram- negative bacilli. -Gastroesophageal reflux disease -Hyperlipidemia -Depression -Hypertension for above-mentioned chronic medical problems patient was resumed on appropriate home medications GI prophylaxis with Pepcid secondary to sepsis, due to prophylaxis with subcutaneous heparin
--- NOTE | 2019-06-10 21:16 | P.PN ---
Subjective Progress Note Date: 06/10/19 74-year-old woman presents to Hospital feeling poorly in home for the last few days. She consequently is brought to Hospital by family with alteration of her mental status fever and weakness. She apparently has been followed in the outpatient setting for a urinary tract infection. They thought maybe urine culture was on the primary care physician office which the nursing staff have attempted to obtain. Initially that she took [id number] Azo products for almost 2 weeks. she now presents with evidence of sepsis and the consult was requested. She does not believe that she has had outpatient antibiotic therapy.06/10/2019 the patient today is much more awake alert and interactive. She is able to complete sentences. The patient's is present today and is able to relate and confirm that her activity of yesterday was not her baseline. She does have difficulty but is normally awake alert and is able to feed and toilet herself, which she was not able to do yesterday. He relates that she became so weak she ended up on the floor and could not get her up and EMS brought her to hospital. is quite pleased that she is so improved in a days' time. Objective - Vital Signs Vital signs: Vital Signs Temp 98.4 F 06/10/19 11:57 Pulse 88 06/10/19 11:57 Resp 16 06/10/19 11:57 BP 124/84 06/10/19 11:57 Pulse Ox 96 06/10/19 11:57 Intake & Output 06/10/19 06/10/19 06/11/19 06:59 18:59 06:59 Intake Total 1680 850 Balance 1680 850 Intake: Intake, IV Titration 1200 850 Amount Sodium Chloride 0.9% 1, 1200 800 000 ml @ 100 mls/hr IV . Q10H [facility] Rx#:[id number] cefTRIAXone 2 gm In 50 Sodium Chloride 0.9% 50 ml @ 100 mls/hr IVPB Q24HR [facility] Rx#:[id number] Oral 480 Other: Voiding Method Diaper Bedside Commode Diaper # Voids 2 2 - Exam HEENT: Anicteric conjunctiva are pink and moist nasal mucosa grossly intact without significant lesions, there is no thrush. Neck: The neck is supple without significant lymphadenopathy or thyromegaly. Lungs: Good bilateral air entry without significant crackles or wheezing. There is no significant bronchial sounds. There is no egophony or dullness. Heart: Regular audible S1 and S2 soft S4 no murmur click or a PMI is nondisplaced Abdomen: Obese, Positive bowel sounds soft and nontender without palpable masses or organomegaly. There was no guarding or rebound. Extremities: The upper extremities have excellent pulses they are symmetric, no significant petechiae or telangiectasia. No splinter hemorrhages were noted. The lower extremities have bilateral lower extremity edema is 2+ and symmetric without open ulcerations being seen Neuro: Today the patient is awake and alert she is oriented in person and place and is able to state that is 2019. She is able to follow some simple commands. She recognizes her and is able to identify him by name, and date of the anniversary. - Labs CBC & Chem 7: 06/10/19 07:11 06/10/19 07:11 Labs: Abnormal Lab Results - Last 24 Hours (Table) 06/10/19 06/10/19 Range/Units 07: 07:11 WBC 12.1 H (3.8-10.6) k/uL Hgb 11.2 L (11.4-16.0) gm/dL RDW 15.9 H (11.5-15.5) % Potassium 3.3 L (3.5-5.1) mmol/L BUN 30 H (7-17) mg/dL Creatinine 1.10 H (0.52-1.04) mg/dL Glucose 112 H (74-99) mg/dL Microbiology - Last 24 Hours (Table) 06/09/19 09:02 Urine Culture - Preliminary Urine,Catheterized Gram Neg Bacilli 06/09/19 09:02 Blood Culture - Preliminary Blood No Growth after 24 hours Laboratory Results WBC 12.1 k/uL (3.8-10.6) H 06/10/19 07:11 RBC 4.04 m/uL (3.80-5.40) 06/10/19 07:11 Hgb 11.2 gm/dL (11.4-16.0) L 06/10/19 07:11 Hct 34.6 % (34.0-46.0) 06/10/19 07:11 MCV 85.4 fL (80.0-100.0) 06/10/19 07:11 MCH 27.6 pg (25.0-35.0) 06/10/19 07:11 MCHC 32.3 g/dL (31.0-37.0) 06/10/19 07:11 RDW 15.9 % (11.5-15.5) H 06/10/19 07:11 Plt Count 355 k/uL (150-450) 06/10/19 07:11 Neutrophils % 79 % 06/09/19 08:38 Lymphocytes % 11 % 06/09/19 08:38 Monocytes % 7 % 06/09/19 08:38 Eosinophils % 1 % 06/09/19 08:38 Basophils % 0 % 06/09/19 08:38 Neutrophils # 11.1 k/uL (1.3-7.7) H 06/09/19 08:38 Lymphocytes # 1.5 k/uL (1.0-4.8) 06/09/19 08:38 Monocytes # 1.0 k/uL (0-1.0) 06/09/19 08:38 Eosinophils # 0.1 k/uL (0-0.7) 06/09/19 08:38 Basophils # 0.0 k/uL (0-0.2) 06/09/19 08:38 PT 9.8 sec (9.0-12.0) 06/09/19 08:38 INR 0.9 (<1.2) 06/09/19 08:38 APTT 25.0 sec (22.0-30.0) 06/09/19 08:38 Sodium 137 mmol/L (137-145) 06/10/19 07:11 Potassium 3.3 mmol/L (3.5-5.1) L 06/10/19 07:11 Chloride 102 mmol/L (98-107) 06/10/19 07:11 Carbon Dioxide 25 mmol/L (22-30) 06/10/19 07:11 Anion Gap 10 mmol/L 06/10/19 07:11 BUN 30 mg/dL (7-17) H 06/10/19 07:11 Creatinine 1.10 mg/dL (0.52-1.04) H 06/10/19 07:11 Est GFR (CKD-EPI)AfAm 58 (>60 ml/min/1.73 sqM) 06/10/19 07:11 Est GFR (CKD-EPI)NonAf 50 (>60 ml/min/1.73 sqM) 06/10/19 07:11 Glucose 112 mg/dL (74-99) H 06/10/19 07:11 Calcium 8.4 mg/dL (8.4-10.2) 06/10/19 07:11 Total Bilirubin 0.7 mg/dL (0.2-1.3) 06/09/19 08:38 AST 27 U/L (14-36) 06/09/19 08:38 ALT 19 U/L (9-52) 06/09/19 08:38 Alkaline Phosphatase 105 U/L (38-126) 06/09/19 08:38 Ammonia <9 umol/L (<30) 06/09/19 08:38 Creatine Kinase 24 U/L (30-135) L 06/09/19 08:38 Troponin I <0.012 ng/mL (0.000-0.034) 06/09/19 08:38 Total Protein 6.7 g/dL (6.3-8.2) 06/09/19 08:38 Albumin 3.7 g/dL (3.5-5.0) 06/09/19 08:38 Urine Color Yellow 06/09/19 09:02 Urine Appearance Turbid (Clear) H 06/09/19 09:02 Urine pH 6.0 (5.0-8.0) 06/09/19 09:02 Ur Specific [place] 1.016 (1.001-1.035) 06/09/19 09:02 Urine Protein 1+ (Negative) H 06/09/19 09:02 Urine Glucose (UA) Negative (Negative) 06/09/19 09:02 Urine Ketones Negative (Negative) 06/09/19 09:02 Urine Blood Moderate (Negative) H 06/09/19 09:02 Urine Nitrite Positive (Negative) H 06/09/19 09:02 Urine Bilirubin Negative (Negative) 06/09/19 09:02 Urine Urobilinogen <2.0 mg/dL (<2.0) 06/09/19 09:02 Ur Leukocyte Esterase Large (Negative) H 06/09/19 09:02 Urine RBC 22 /hpf (0-5) H 06/09/19 09:02 Urine WBC >182 /hpf (0-5) H 06/09/19 09:02 Urine WBC Clumps Many /hpf (None) H 06/09/19 09:02 Urine Bacteria Many /hpf (None) H 06/09/19 09:02 Urine Opiates Screen Not Detected (NotDetected) 06/09/19 09:02 Ur Oxycodone Screen Not Detected (NotDetected) 06/09/19 09:02 Urine Methadone Screen Not Detected (NotDetected) 06/09/19 09:02 Ur Propoxyphene Screen Not Detected (NotDetected) 06/09/19 09:02 Ur Barbiturates Screen Not Detected (NotDetected) 06/09/19 09:02 U Tricyclic Antidepress Not Detected (NotDetected) 06/09/19 09:02 Ur Phencyclidine Scrn Not Detected (NotDetected) 06/09/19 09:02 Ur Amphetamines Screen Not Detected (NotDetected) 06/09/19 09:02 U Methamphetamines Scrn Not Detected (NotDetected) 06/09/19 09:02 U Benzodiazepines Scrn Detected (NotDetected) H 06/09/19 09:02 Urine Cocaine Screen Not Detected (NotDetected) 06/09/19 09:02 U Marijuana (THC) Screen Not Detected (NotDetected) 06/09/19 09:02 Microbiology 06/09/19 09:02 Urine,Catheterized Urine Culture - Preliminary Gram Neg Bacilli 06/09/19 09:02 Blood Blood Culture - Preliminary No Growth after 24 hours nursing staff relates the laboratory has called positive blood culture for GNB Assessment and Plan (1) Febrile illness, acute Current Visit: Yes Status: Acute Code(s): R50.9 - FEVER, UNSPECIFIED SNOMED Code(s): 860658190 (2) Urinary tract infection Narrative/Plan: 74-year-old woman who has a several week history of urinary tract infection who has been treated with outpatient treatments. Apparently she did try to be seen in the outpatient setting but there is no notation that she was placed on antibiotic therapy or had urinalysis or culture. At this time she appears to have sepsis from urinary system and antibiotic therapy has been initiated with Rocephin. Imaging of the system was requested. Hydration has been given in a. There has been improvement of her status. Her leukocytosis secondary to her sepsis and urinary infection. She appears to have septic encephalopathy that already is starting to improve. 06/10/2019 patient is showing significant improvement at this time. She is awake and alert and recognizes her . Has however not getting her baseline status yet as per . She is comfortable and not in severe pain. His dysuria and urinary frequency but this seems improved and does have urinary incontinence. She is denying diarrhea, chronic joint pains are not acutely worse. At this time we'll continue with Rocephin with evidence of the positive urine culture. Nursing staff relates that laboratory is called a positive blood culture for gram-negative bacilli. The with the identification. May require outpatient intravenous antibiotic therapy. Current Visit: Yes Status: Acute Code(s): N39.0 - URINARY TRACT INFECTION, SITE NOT SPECIFIED SNOMED Code(s): 16394524 (3) Sepsis Current Visit: Yes Status: Acute Code(s): A41.9 - SEPSIS, UNSPECIFIED ORGANISM SNOMED Code(s): 18334802
[2019-06-11] MEDS: ACETAMINOPHEN TAB 325 MG TAB PO PRN (05:04)
[2019-06-11] MEDS: SODIUM CHLORIDE 0.9% 1,000 ML IV SCH (05:38)
[2019-06-11 07:46] LABS: HCT 30.7 % (34.0-46.0); HGB 9.8 gm/dL (11.4-16.0); Hypochromasia Slight; MCHC 31.7 g/dL (31.0-37.0); MCV 88.3 fL (80.0-100.0); Mean Platelet Volume 6.7; Platelet Count 312 k/uL (150-450); RBC 3.48 m/uL (3.80-5.40)
[2019-06-11 08:03] LABS: Calcium 8.1 mg/dL (8.4-10.2)
[2019-06-11] MEDS: FAMOTIDINE 20 MG TAB PO SCH (08:17)
[2019-06-11] MEDS: POTASSIUM CHLORIDE ER 10 MEQ TAB.ER.PRT PO SCH (08:17)
[2019-06-11] MEDS: HEPARIN SODIUM,PORCINE 5,000 UNIT/ML 1 ML VIAL SQ SCH (08:17)
[2019-06-11] MEDS: PROPRANOLOL LA 60 MG CAP.SA.24H PO SCH (08:17)
[2019-06-11] MEDS: PANTOPRAZOLE 40 MG TABLET PO SCH (08:17)
[2019-06-11 08:18] LABS: Potassium 4.2 mmol/L (3.5-5.1)
--- NOTE | 2019-06-11 09:19 | US ---
EXAMINATION TYPE: US kidneys/renal and bladder DATE OF EXAM: 06/11/2019 COMPARISON: NONE CLINICAL HISTORY: urinary sepsis, nephrolithiasis, hydronephrosis. abd pain, no h/o stones, large bod y habitus EXAM MEASUREMENTS: Right Kidney: 8.4 x 4.2 x 5.3 cm Left Kidney: 10.4 x 4.5 x 4.8 cm Right Kidney: Small in size, no hydronephrosis or masses seen Left Kidney: No hydronephrosis or masses seen Bladder: not distended IMPRESSION: 1. Normal renal ultrasound. 2. Renal stones are not identified at this time.
[2019-06-11 12:32] VITALS: BP 136/82; PULSE 65; TEMP 97.9
--- NOTE | 2019-06-11 15:21 | P.DS ---
Providers Date of admission: 06/09/19 11:00 Attending physician: Emmy Roque Consults: 06/09/19 13:57 Consult Physician Routine Consulting Provider: Amol Srivastava Reason/Comments: uti Do you want consulting provider notified?: Yes Primary care physician: Josue Love [facility] Course: 74-year-old female was admitted for sepsis secondary to UTI and right-sided pyelonephritis patient is feeling better patient is afebrile patient's serum creatinine is 1.15 stable at that level. Patient will be continued on IV fluids and antibiotics urine cultures are showing gram-negative bacilli. There are no urine cultures available from outpatient. 06/11/2019 Patient has past history: In the urine because of the side effects of fluoroquinolones are good and I discharged on Ceftin for 7 days completing total 10 day of therapy for pyelonephritis. Bladder ultrasound and renal ultrasound did not show any significant abnormality of renal calculi. PHYSICAL EXAMINATION: GENERAL: The patient is alert and oriented x3, not in any acute distress. Well developed, well nourished. HEENT: Pupils are round and equally reacting to light. EOMI. No scleral icterus. No conjunctival pallor. Normocephalic, atraumatic. No pharyngeal erythema. No thyromegaly. CARDIOVASCULAR: S1 and S2 present. No murmurs, rubs, or gallops. PULMONARY: Chest is clear to auscultation, no wheezing or crackles. ABDOMEN: Soft, nontender, nondistended, normoactive bowel sounds. No palpable organomegaly. MUSCULOSKELETAL: No joint swelling or deformity. EXTREMITIES: No cyanosis, clubbing, or pedal edema. NEUROLOGICAL: Gross neurological examination did not reveal any focal deficits. SKIN: No rashes. Assessment and Plan Plan: -Sepsis secondary to urinary tract infection, patient appears to have pyelonephritis: -Gastroesophageal reflux disease -Hyperlipidemia -Depression -Hypertension will not require HIDA chlorothiazide which will be discontinued Patient Condition at Discharge: Fair Plan - Discharge Summary Discharge Rx Participant: No New Discharge Prescriptions: New Cefuroxime Axetil [Ceftin] 500 mg PO BID 7 Days #14 tab Continue Propranolol HCl [Inderal LA] 120 mg PO DAILY Omeprazole [PriLOSEC] 40 mg PO DAILY Simvastatin 10 mg PO HS Discontinued Hydrochlorothiazide 50 mg PO DAILY Potassium Chloride [Klor-Con 10] 10 meq PO DAILY ALPRAZolam [Xanax] 0.5 mg PO TID PRN PRN Reason: Anxiety Discharge Medication List Omeprazole [PriLOSEC] 40 mg PO DAILY 06/09/19 [History] Propranolol HCl [Inderal LA] 120 mg PO DAILY 06/09/19 [History] Simvastatin 10 mg PO HS 06/09/19 [History] Cefuroxime Axetil [Ceftin] 500 mg PO BID 7 Days #14 tab 06/11/19 [Rx] Follow up Appointment(s)/Referral(s): Amol Srivastava MD [STAFF PHYSICIAN] - 1 Week Josue Love MD [Primary Care Provider] - 3 Days
== END 2019-06-11 16:53 | disposition home health service (06) | DRG 871 ==
LOC: EC 08:34 → 3NMEDONC 11:00
PROVIDERS: ADMIT Internal Medicine; ATTEND Internal Medicine
DX: A41.51 Sepsis due to Escherichia coli [E. coli] (principal); G93.41 Metabolic encephalopathy; N12 Tubulo-interstitial nephritis, not specified as acute or chronic; F05 Delirium due to known physiological condition; N17.9 Acute kidney failure, unspecified; E78.5 Hyperlipidemia, unspecified; E86.0 Dehydration; F32.9 Major depressive disorder, single episode, unspecified; I10 Essential (primary) hypertension; K21.9 Gastro-esophageal reflux disease without esophagitis; R32 Unspecified urinary incontinence; W19.XXXA Unspecified fall, initial encounter; Z79.899 Other long term (current) drug therapy; Z82.0 Family history of epilepsy and other diseases of the nervous system; Z82.49 Family history of ischemic heart disease and other diseases of the circulatory system; Z86.011 Personal history of benign neoplasm of the brain; Z87.440 Personal history of urinary (tract) infections; Z87.891 Personal history of nicotine dependence; Z90.710 Acquired absence of both cervix and uterus
CPT/HCPCS: 36415; 51701; 70450; 71046; 72125; 76770; 80048; 80053; 80306; 81001; 82140; 82550; 84484; 85025; 85027; 85610; 85730; 87040; 87077; 87086; 87186; 93005; 94760; 96361; 96374; 99285